=== PATIENT | female | born 1990 | race Caucasian/White ===

== ENCOUNTER 2016-06-10 12:22 | Emergency (ER) | payer OTHER ==
[~2016-06-10] VITALS: Ht 165.1 cm; Wt 68.7 kg
[~2016-06-10 12:22] MED LIST: NORCO 5/3251 TABLET PO
[2016-06-10 12:33] VITALS: BP 126/81
[2016-06-10] MEDS ORDERED: MOTRIN800 MG PO (13:29)
== END 2016-06-10 14:35 | disposition home or self-care (01) ==
LOC: EME 12:22
DX: S63.502A Unspecified sprain of left wrist, initial encounter (principal); W18.30XA Fall on same level, unspecified, initial encounter
CPT/HCPCS: 73110; 99281; 99284

== ENCOUNTER 2016-08-07 02:31 | Emergency (ER) | payer OTHER ==
[~2016-08-07] VITALS: Ht 165.1 cm; Wt 71.9 kg
[~2016-08-07 02:31] MED LIST changes: +MOTRIN800 MG PO
[2016-08-07 02:46] LABS: HEMATOCRIT 40.4 % (36.0-46.0); MCH 32.9 PG (29.0-34.0); MCHC 33.9 G/DL (30.0-36.0); MCV 96.9 FL (83-99); RBC DIS.WIDTH-CV 12.8 % (11.8-14.6); RED BLOOD COUNT 4.17 M/uL (3.80-5.20); WHITE BLOOD COUNT 13.2 K/uL (4.1-10.2)
[2016-08-07 03:01] LABS: CHLORIDE 102 mEq/L (99-109); POTASSIUM 3.3 mEq/L (3.7-5.4); SODIUM 136 mEq/L (136-147)
[2016-08-07 03:03] LABS: GLUCOSE 184 mg/dL (70-99)
[2016-08-07 03:04] LABS: ANION GAP 13 MEQ/L (2-14)
[2016-08-07 03:06] LABS: SERUM ETHYL ALCOHOL 126 mg/dL
[2016-08-07 03:07] LABS: GFR ESTIMATE (CALCULATED) > 59 mL/min/
[2016-08-07 03:09] LABS: UREA NITROGEN (BUN) 17 mg/dL (9-23)
[2016-08-07 03:10] LABS: SALICYLATE < 5.0 MG/DL (15-30)
[2016-08-07 03:16] LABS: QUANTITATIVE HCG < 4.0 MIU/ML
[2016-08-07 03:35] LABS: PLAT.SUFFICIENCY ADEQUATE; PLATELET CLUMPS PRESENT - PLATELET COUNT APPEARS ADQ.
[2016-08-07] MEDS ORDERED: NARCAN4 MG NS (03:35)
[2016-08-07 04:30] VITALS: BP 127/85
== END 2016-08-07 04:30 | disposition home or self-care (01) ==
LOC: EME 02:31
PROVIDERS: Emergency Medicine
DX: T40.1X1A Poisoning by heroin, accidental (unintentional), initial encounter (principal); F17.200 Nicotine dependence, unspecified, uncomplicated
CPT/HCPCS: 71010; 80048; 84702; 85027; 93005; 99281; 99285; G0480; J2310; J2405; J7030